=== PATIENT | female | born 1960 | race Two or more races ===

== ENCOUNTER 2025-04-08 06:00 | Day surgery (SDC) | payer OTHER ==
[2025-04-03 13:31] VITALS: BP 163/67
[2025-04-03 13:52] LABS: BASO % 0.7 % (0.1-1.2); EOS # 0.06 (0.04-0.54); EOS % 1.4 % (0.7-7.0); LYMPH # 1.42 (1.18-3.74); LYMPH % 33.3 % (19.3-53.1); MEAN PLATELET VOLUME 9.70 fl (9.4-12.4); MONO # 0.40 (0.24-0.82); MONO % 9.4 % (4.7-12.5); NEUT # 2.34 (1.56-6.13); NEUT % 55.0 % (34.0-71.1); RED CELL DISTRIBUTION WIDTH 12.8 % (11.6-14.4)
[2025-04-03 13:57] LABS: URINE APPEARANCE Clear; URINE BILIRRUBIN Negative (NEGATIVE); URINE BLOOD Trace; URINE COLOR Yellow; URINE GLUCOSE Negative (NEGATIVE); URINE KETONE Negative (NEGATIVE); URINE LEUKOCYTE Negative; URINE NITRATE Negative; URINE PROTEIN Negative (NEGATIVE); URINE UROBILINOGEN 0.2 E.U./dl
[2025-04-03 14:04] LABS: URINE BACTERIA 420.9 uL (0.0-1933); URINE EPITHELIAL CELLS 9.5 uL (0.0-38.8); URINE RBC 10.7 uL (0.0-20.8); URINE WBC 3.3 uL (0.0-23.2)
[2025-04-03 14:12] LABS: INR 1.05
[2025-04-03 14:34] LABS: URINE CAST 0.00 uL (0.0-1.40)
[2025-04-03 15:11] LABS: ALT/SGPT 20.0 U/L (12-78); AST/SGOT 15.0 U/L (15-37); BILIRUBIN TOTAL 0.65 mg/dL (0.3-1.2); BUN CREA RATIO 23.0 (7.0-25.0); CREATININE SERUM 0.64 mg/dL (0.55-1.02); GFR 93.42; GLOBULINA 2.5 G/DL (2.4-3.5); GLUCOSE FASTING 79.0 mg/dL (65-100); OSMOLALITY SERUM 281.0 MOSM/KG (275-295)
[~2025-04-08] VITALS: Ht 162.6 cm; Wt 68.0 kg
[~2025-04-08 06:00] MED LIST: ROSUVASTATIN CA20 MG
[2025-04-08] MEDS ORDERED: CEFAZOLIN SODIUM 1,000 MG VIAL IV ONE ×2 (08:45→09:45)
[2025-04-08] MEDS ORDERED: DUI500 PO (09:36)
[2025-04-08] MEDS ORDERED: TRAM1TAB98 PO (09:37)
[2025-04-08] MEDS ORDERED: CEFADROXIL 500 MG CAPSULE PO SCH (21:00)
== END 2025-04-08 13:00 | disposition home or self-care (01) ==
LOC: CIR.AMB 06:00
PROVIDERS: ATTEND Orthopaedic Surgery Sports Medicine
DX: M23.252 Derangement of posterior horn of lateral meniscus due to old tear or injury, left knee (principal); M65.862 Other synovitis and tenosynovitis, left lower leg; M17.12 Unilateral primary osteoarthritis, left knee